=== PATIENT | male | born 1995 | race Two or more races ===

== ENCOUNTER 2021-09-24 02:34 | Emergency (ER) | payer SELFPAY ==
[~2021-09-24] VITALS: Ht 157.5 cm; Wt 60.0 kg
[2021-09-24 02:34] VITALS: BP 116/68
[2021-09-24] MEDS ORDERED: KETOROLAC TROMETH 60MG/2ML VIAL IM ONE (05:15)
== END 2021-09-24 05:20 | disposition left against medical advice (07) ==
LOC: ER 02:34
DX: S90.01XA Contusion of right ankle, initial encounter (principal); W22.8XXA Striking against or struck by other objects, initial encounter; Y93.89 Activity, other specified; Y92.89 Other specified places as the place of occurrence of the external cause; Y99.8 Other external cause status
CPT/HCPCS: 73610; 96372; 99283; J1885

== ENCOUNTER 2021-09-28 21:22 | Emergency (ER) | payer SELFPAY ==
[~2021-09-28] VITALS: Ht 160 cm; Wt 57.0 kg
[2021-09-29] MEDS ORDERED: HYDROcodone-ACET 10/325MG TAB PO ONE (08:00)
[2021-09-29] MEDS ORDERED: KETOROLAC TROMETH 60MG/2ML VIAL IM ONE (08:00)
[2021-09-29 08:49] VITALS: BP 111/75
[2021-09-29] MEDS ORDERED: IBU600T PO ×2 (09:25→11:28)
== END 2021-09-29 09:49 | disposition home or self-care (01) ==
LOC: ER 21:22
DX: M79.10 Myalgia, unspecified site (principal); R11.2 Nausea with vomiting, unspecified; R19.7 Diarrhea, unspecified
CPT/HCPCS: 71250; 73562; 73600; 74176; 96372; 99284; J1885